=== PATIENT | female | born 1965 | race Caucasian/White ===

== ENCOUNTER 2023-07-17 07:58 | Emergency (ER) | payer OTHER, SELFPAY ==
[2023-07-17 08:02] VITALS: BP 178/78
[2023-07-17 08:18] VITALS: BMI 35.2
[2023-07-17] MEDS: DILAUDID 1 MG IM (08:37)
--- NOTE | 2023-07-17 08:58 | ED.GENMED ---
Addendum entered and electronically signed by Fabian Daniel Jr., PA-C 10/19/23 07:08:
The HPI, PE and MDM are in error in this chart.
HPI: 58-year-old female with significant cardiac history presenting to the emergency department after a fall resulting in significant discomfort to the left shoulder also may have hit her head as well. Unable to move the shoulder from significant
discomfort. Denies specific chest pain shortness of breath numbness weakness.
PE: GENERAL: Alert , in no apparent distress
EYE: pupils equal and reactive
NECK: Supple, no significant adenopathy.
ENT: o/p clr, mmm.
CARDIAC: Regular rate and rhythm .
LUNGS: Clear breath sounds bilaterally, no acute respiratory distress, no wheezes/rales/rhonchi
ABDOMEN: Soft, without focal tenderness, no r/g, no cvat
NEUROLOGICAL: Alert and oriented, no focal neuro deficits
SKIN: Warm and dry, skin intact.
MUSCULOSKELETAL: Unable to move the left shoulder secondary to pain tenderness palpation at the proximal shoulder as well. Able to second facing baster distally no tenderness at the forearm wrist or hand.
PSYCH: Normal and appropriate interaction.
Medical decision making: Patient presenting after a fall. Head CT without emergent findings x-ray of the left shoulder showing humerus fracture. Patient placed in sling with follow-up with orthopedic for further management. Neurovascular intact.
Stable for outpatient management.
Original Note:
History of Present Illness
General
Chief Complaint: Musculo-Skeletal Complaint
Source: patient
Exam Limitations: none
Time Seen by Provider: 07/17/23 08:06
Nursing documentation reviewed up to this point in time: agreed with
Travel History
Have you had any contact with someone who has COVID-19?: No
Do you have any symptoms of coronavirus? Fever > 100 degrees, chills, cough, shortness of breath, sore throat, loss of taste or smell, muscle aches, or headache?: No
History of Present Illness
History of Present Illness:
57-year-old female with past medical history of triple bypass surgery CAD hypertension hyperlipidemia previous abdominal surgery in the past for hernia presenting to the emergency department today with concerns of swelling and discomfort in the mid
abdomen worsening of the past 24 hours. Believes he may have had a hernia in the past but claims that symptoms have been worse over the past day. Also note some discharge from her umbilicus. Denies fevers chest pain shortness of breath nausea
vomiting or diarrhea.
Past History
Past History
ED Past Medical History: CAD, Hypercholesterolemia, IDDM, Hypothyroidism and Other
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
ureteroscopy with bilateral kidney stone removal 2009)
Social History
Tobacco: Non-smoker
Alcohol: None
Personal:
Living: with family
Employment: Employed
Family History
Family History: Hypertension
Review of Systems
Review of Systems
Allergies reviewed?: Yes
All Other Systems: ROS reviewed and negative except as documented in HPI and ROS
Phy Exam
Physical Exam
Physical Exam:
GENERAL: Alert , in no apparent distress
EYE: pupils equal and reactive
NECK: Supple, no significant adenopathy.
ENT: o/p clr, mmm.
CARDIAC: Regular rate and rhythm .
LUNGS: Clear breath sounds bilaterally, no acute respiratory distress, no wheezes/rales/rhonchi
ABDOMEN: Drainage from the umbilicus, mass just above the umbilicus tender to palpation to the area otherwise soft benign abdomen surrounding., no r/g, no cvat
NEUROLOGICAL: Alert and oriented, no focal neuro deficits
SKIN: Warm and dry, skin intact.
MUSCULOSKELETAL: No edema, well perfused.
PSYCH: Normal and appropriate interaction.
Course
Orders/Labs/Results
Orders:
Orders
07/17/23 08:06
CR Shoulder, Trauma - Left Urgent
Comment:
Reason For Exam: shoulder pain
07/17/23 08:31
CT Head W/o Iv Contrast Urgent
Comment:
Reason For Exam: fall hit head
07/17/23 08:32
HYDROmorphone [Dilaudid] 1 mg IM NOW STA
Vital Signs
Initial and Last Documented VS:
Initial Vital Signs
Temp Pulse Resp BP Pulse Ox
97.8 F 86 26 178/78 98
07/17/23 08:02 07/17/23 08:02 07/17/23 08:02 07/17/23 08:02 07/17/23 08:02
Last Documented Vital Signs
Temp Pulse Resp BP Pulse Ox
97.8 F 84 16 123/71 98
07/17/23 08:02 07/17/23 10:25 07/17/23 10:25 07/17/23 10:25 07/17/23 09:00
MDM/Problems Addressed
MDM/Problems Addressed:
57-year-old female presenting to the emergency department today with concerns of abdominal pain also noticed a mass to the abdominal wall as well as drainage from her umbilicus. Here patient is hypertensive otherwise vital signs are normal.
Patient does have tenderness to the abdomen plan for CT scan for further assessment. CT scan negative of the head x-ray showing a proximal fracture of the humerus. Patient was placed in a sling will follow-up closely with orthopedics. CT scan
negative of the head. Otherwise patient stable for discharge return precautions were given.
*Critical Care Note
Total Time (30-74mins, 75-104mins- exclusive of procedures): Not Applicable
ED Attending Note
-
Portions of this chart may have been created with voice recognition software.� Occasional wrong word or��sound alike� substitutions may have occurred due to the inherent limitations of voice recognition software.
Discharge Plan
Departure
Patient Disposition: Home (Routine Discharge)
Date of Disposition: 07/17/23
Time of Disposition: 10:56
Patient with high blood pressure during this ER visit?: No
Condition: Good
Covid-19: Not Applicable
Discharge Problem:
Closed fracture of proximal end of left humerus
Instructions: Shoulder Fracture (DC)
Prescriptions:
New
acetaminophen-codeine 300-30 mg tablet
1 tab PO BID PRN (Reason: Pain) Qty: 10 0RF
No Action
aspirin 81 MG tablet,delayed release (DR/EC)
81 mg PO DAILY
potassium citrate 10 MEQ tablet extended release
10 meq PO Q48H
B-complex with vitamin C [Super B/C] 1 EACH capsule
1 cap PO DAILY
Vhbd-Sjbk-Szqfif Oil 1 EACH capsule
1 cap PO DAILY
atorvastatin 80 MG tablet
80 mg PO DAILY
Hair,Skin and Nails 1 EACH tablet
1 ea PO DAILY
metoprolol succinate 25 MG tablet extended release 24 hr
25 mg PO DAILY
levothyroxine 100 mcg Tablet
100 mcg PO DAILY
insulin aspart U-100 [Novolog U-100 Insulin aspart] 100 unit/mL Solution
0 unit SC .SEE BELOW
Patient Comments:
07/17/2023, patient has an insulin pump and states that her insulin intake depends on her basal rate; patient states that the insulin pump holds between 220-240 units and that she uses between 50-60 units a day depending on her basal rate and how
much and what kind of foods she eats; patient states that she changes her insulin once every 3 days roughly when she has between 5-6 units left in the pump.
olmesartan 5 mg Tablet
10 mg PO DAILY
Women's One Daily 18 mg iron-400 mcg-500 mg Ca Tablet
1 tab PO DAILY
Referrals:
Jh Crowell MD [Active] - Follow up in 5-7 days
Jody Owen MD [Family Provider] -
Activity Restrictions/Additional Instructions:
You came to the emergency department today with concerns of left-sided shoulder discomfort. You are found to have a proximal shoulder, humerus fracture. Please rest in a sling until orthopedic follow-up. Otherwise your head CT was normal. Return
to the emergency department any worsening, new or concerning symptoms.
Interventions
Interventions:
*Risk Screen - Suicide Last Done: 07/17/23 08:04
*General Assessment Last Done: 07/17/23 08:04
*Neglect/Abuse Screening Last Done: 07/17/23 08:04
ED- Fall Risk Assessment Last Done: 07/17/23 08:23
*ED COVID-19 Vaccine History Last Done: 07/17/23 08:18
*Nursing Disposition Last Done: 07/17/23 11:10
ED-Musculoskeletal Assessment Last Done: 07/17/23 08:19
ED- Neurological Assessment Last Done: 07/17/23 08:18
ED-Skin Assessment Last Done: 07/17/23 08:23
Discharge Date and Time
Discharge Date/Time: 07/17/23 11:11
[2023-07-17 09:00] VITALS: BP 138/57
[2023-07-17 10:25] VITALS: BP 123/71
== END 2023-07-17 11:11 | disposition home or self-care (01) ==
LOC: EMR 07:58
PROVIDERS: EMERGENCY PHYSICIAN Student in an Organized Health Care Education/Training Program; FAMILY PHYSICIAN Family Medicine
DX: S42.202A Unspecified fracture of upper end of left humerus, initial encounter for closed fracture (principal); X58.XXXA Exposure to other specified factors, initial encounter; I25.10 Atherosclerotic heart disease of native coronary artery without angina pectoris; I10 Essential (primary) hypertension; E78.00 Pure hypercholesterolemia, unspecified; E11.9 Type 2 diabetes mellitus without complications; E03.9 Hypothyroidism, unspecified; Z82.49 Family history of ischemic heart disease and other diseases of the circulatory system; Z87.442 Personal history of urinary calculi; Z95.1 Presence of aortocoronary bypass graft
CPT/HCPCS: 70450; 73030; 96372; 99284

== ENCOUNTER → 2023-10-13 07:05 | Outpatient (REF) | payer OTHER, SELFPAY | LOC: EMG 07:05 | PROVIDERS: ATTENDING PHYSICIAN Orthopaedic Surgery; FAMILY PHYSICIAN Family Medicine | DX: R20.0 Anesthesia of skin (principal) | CPT/HCPCS: 95886; 95909 ==

== ENCOUNTER → 2024-03-29 14:23 | Outpatient (REF) | payer BC, SELFPAY | LOC: RAD 14:23 | PROVIDERS: ATTENDING PHYSICIAN Nurse Practitioner Family; FAMILY PHYSICIAN Family Medicine | DX: R05.8 Other specified cough (principal) | CPT/HCPCS: 71046 ==

== ENCOUNTER → 2024-05-25 14:21 | Outpatient (REF) | payer BC, SELFPAY | LOC: WDC 14:21 | PROVIDERS: ATTENDING PHYSICIAN Family Medicine; FAMILY PHYSICIAN Nurse Practitioner Family | DX: Z12.31 Encounter for screening mammogram for malignant neoplasm of breast (principal) | CPT/HCPCS: 77063; 77067 ==

== ENCOUNTER → 2024-06-07 16:26 | Outpatient (REF) | payer BC, SELFPAY | LOC: RAD 16:26 | PROVIDERS: ATTENDING PHYSICIAN Internal Medicine; FAMILY PHYSICIAN Nurse Practitioner Family | DX: N18.31 Chronic kidney disease, stage 3a (principal); R29.6 Repeated falls | CPT/HCPCS: 70450; 76770 ==

== ENCOUNTER → 2024-12-03 11:02 | Outpatient (REF) | payer BC, SELFPAY | LOC: RCS 11:02 | PROVIDERS: ATTENDING PHYSICIAN Internal Medicine Cardiovascular Disease; FAMILY PHYSICIAN Family Medicine; OTHER PHYSICIAN Nurse Practitioner Family | DX: R07.89 Other chest pain (principal); R09.89 Other specified symptoms and signs involving the circulatory and respiratory systems | CPT/HCPCS: 93306; 93880 ==